=== PATIENT | female | born 1940 | race Caucasian/White ===

== ENCOUNTER → 2019-04-27 | Outpatient (CLI) | payer MEDICARE, BC ==
[~2019-04-27] MED LIST: APIX5TAB PO; CARV-39 PO; EZET1TAB26 PO; LOSA50TA14 PO
[2019-04-27 14:49] LABS: MICROSCOPIC NOT IND
[2019-04-27 14:51] LABS: CULTURE INDICATED? NO
[2019-04-27 15:00] LABS: ALANINE AMINOTRANSFERASE 26 U/L (12-78); ALBUMIN 3.8 g/dL (3.4-5.0); ANION GAP 5 mmol/L (5-15); CALCIUM 8.7 mg/dL (8.5-10.1); CHLORIDE 111 mmol/L (98-107); CREATININE 1.15 mg/dL (0.55-1.02)
[2019-04-27 15:03] LABS: ALKALINE PHOSPHATASE 103 U/L (45-117); BILIRUBIN,TOTAL 0.8 mg/dL (0.2-1.0); TOTAL PROTEIN 7.3 g/dL (6.4-8.2)
== END | disposition home or self-care (01) ==
LOC: STAR 13:13
PROVIDERS: ATTEND Obstetrics & Gynecology Gynecology
DX: Z01.818 Encounter for other preprocedural examination (principal); N81.10 Cystocele, unspecified; N81.6 Rectocele; F17.200 Nicotine dependence, unspecified, uncomplicated
CPT/HCPCS: 36415; 71046; 80053; 81003; 93005

== ENCOUNTER 2019-05-15 07:11 | Inpatient (IN) | payer MEDICARE, BC ==
[~2019-05-15] VITALS: Ht 162.6 cm; Wt 78.3 kg
[2019-05-15] MEDS ORDERED: LACTATED RINGERS 1,000 ML IV SCH (07:48)
[2019-05-15] MEDS ORDERED: GABAPENTIN 300 MG CAPSULE PO ONE (08:00)
[2019-05-15] MEDS ORDERED: ACETAMINOPHEN 500 MG TABLET PO ONE (08:00)
[2019-05-15] MEDS ORDERED: FENTANYL PF 250 MCG/5ML ONE (09:29)
[2019-05-15] MEDS ORDERED: hydrALAzine 20 MG/ML, 1ML IV PRN (09:30)
[2019-05-15] MEDS ORDERED: METOPROLOL 1 MG/ML, 5ML IV PRN (09:30)
[2019-05-15] MEDS ORDERED: LABETALOL 5MG/ML, 20ML IV PRN (09:30)
[2019-05-15] MEDS ORDERED: PROMETHAZINE 25 MG/ML, 1ML IV PRN (09:30)
[2019-05-15] MEDS ORDERED: OXYcodone 5 MG/5 ML ORAL.SOL UDC PO PRN (09:30)
[2019-05-15] MEDS ORDERED: MEPERIDINE/PF 25MG/ML,1ML IVPush PRN (09:30)
[2019-05-15] MEDS ORDERED: HALOPERIDOL 5 MG/ML IV PRN (09:30)
[2019-05-15] MEDS ORDERED: PHENYLEPHRINE 10 MG/ML ONE (09:35)
[2019-05-15] MEDS ORDERED: FUROSEMIDE 20 MG/2 ML ONE (09:35)
[2019-05-15] MEDS ORDERED: INDIGO CARMINE 0.8%, 5ML ONE (09:35)
[2019-05-15] MEDS ORDERED: EPHEDRINE 50 MG/ML, 1ML ONE (09:56)
[2019-05-15] MEDS ORDERED: NEOSTIGMINE 1 MG/ML, 10ML ONE (11:24)
[2019-05-15] MEDS ORDERED: DEXAMETHASONE 4 MG/ML, 1ML ONE (11:24)
[2019-05-15] MEDS ORDERED: SUCCINYLCHOLINE 20 MG/ML, 10ML ONE (11:24)
[2019-05-15] MEDS ORDERED: GLYCOPYRROLATE 0.2MG/1ML, 5ML ONE (11:24)
[2019-05-15] MEDS ORDERED: ONDANSETRON 2MG/ML, 2ML ONE (11:24)
[2019-05-15] MEDS ORDERED: ROCURONIUM 10MG/ML,5ML ONE (11:24)
[2019-05-15] MEDS ORDERED: CEFAZOLIN 1,000 MG ONE (11:24)
[2019-05-15] MEDS ORDERED: PROPOFOL 10 MG/ML, 20ML ONE (11:24)
[2019-05-15] MEDS ORDERED: FENTANYL PF 100 MCG/2ML ONE (12:04)
[2019-05-15] MEDS ORDERED: OXYcodone 5 MG/5 ML ORAL.SOL UDC ONE (12:05)
[2019-05-15] MEDS: FENTANYL PF 100 MCG/2ML IV PRN ×2 (12:06→12:23)
[2019-05-15] MEDS ORDERED: HYDROmorphone 1 MG/ML, 1ML INJ ONE (12:51)
[2019-05-15] MEDS: HYDROmorphone 2 MG/ML, 1ML IVPush PRN ×2 (12:52→13:02)
[2019-05-15 13:45] VITALS: BP 113/79
[2019-05-15] MEDS ORDERED: ONDANSETRON 2MG/ML, 2ML IVPush PRN (14:30)
[2019-05-15] MEDS: LACTATED RINGERS 1,000 ML IV SCH ×2 (15:30→23:30)
[2019-05-15] MEDS: HYDROcodone/APAP 5/325 TABLET PO PRN ×2 (17:08→22:39)
[2019-05-15 18:29] VITALS: BP 121/82
[2019-05-15 19:19] VITALS: BP 129/83
[2019-05-15] MEDS ORDERED: SIMVASTATIN 10 MG TABLET PO SCH (21:00)
[2019-05-15] MEDS ORDERED: EZETIMIBE 10 MG TABLET PO SCH (21:00)
[2019-05-16 01:39] VITALS: BP 107/68
[2019-05-16] MEDS: HYDROcodone/APAP 5/325 TABLET PO PRN ×3 (03:46→11:40)
[2019-05-16 07:19] VITALS: BP 112/78
[2019-05-16] MEDS: LACTATED RINGERS 1,000 ML IV SCH (07:30)
[2019-05-16 08:51] VITALS: BP 123/88
[2019-05-16] MEDS ORDERED: APIXABAN 5 MG TABLET PO SCH (09:00)
[2019-05-16] MEDS ORDERED: CARVEDILOL 12.5 MG TABLET PO SCH (09:00)
[2019-05-16] MEDS ORDERED: LOSARTAN 25MG TABLET PO SCH (09:00)
[2019-05-16] MEDS ORDERED: ZOLP-413 PO (11:23)
== END 2019-05-16 12:13 | disposition home or self-care (01) | DRG 747 ==
LOC: OUT 07:11 → ORIP 12:29 → 4NE 13:40 → DCLOUNGE 05-16 11:50
PROVIDERS: ADMIT Obstetrics & Gynecology Gynecology; ATTEND Obstetrics & Gynecology Gynecology
PROC: 0UQF0ZZ Repair Cul-de-sac, Open Approach (ICD-10-PCS; principal; 2019-05-16)
PROC: 0USG0ZZ Reposition Vagina, Open Approach (ICD-10-PCS; 2019-05-16)
PROC: 0JQC0ZZ Repair Pelvic Region Subcutaneous Tissue and Fascia, Open Approach (ICD-10-PCS; 2019-05-16)
PROC: 0TJB8ZZ Inspection of Bladder, Via Natural or Artificial Opening Endoscopic (ICD-10-PCS; 2019-05-16)
PROC: 0TSD0ZZ Reposition Urethra, Open Approach (ICD-10-PCS; 2019-05-16)
PROC: 0TQD8ZZ Repair Urethra, Via Natural or Artificial Opening Endoscopic (ICD-10-PCS; 2019-05-16)
DX: N81.5 Vaginal enterocele (principal); N39.3 Stress incontinence (female) (male); N73.6 Female pelvic peritoneal adhesions (postinfective); N92.0 Excessive and frequent menstruation with regular cycle; N81.12 Cystocele, lateral
CPT/HCPCS: G0378; J0690; J1100; J1170; J2405; J2704; J2710; J3010; C1760; C1771; J0330; J1940; J2370; J7120

== ENCOUNTER → 2020-02-16 | Outpatient (CLI) | payer MEDICARE, BC ==
[~2020-02-16] MED LIST changes: +ZOLP-413 PO
[2020-02-16 14:52] LABS: BASOPHILS % (AUTO) 1 % (0-1); EOSINOPHILS % (AUTO) 1 % (1-7); LYMPHOCYTES % (AUTO) 29 % (22-44); MEAN CORPUSCULAR HEMOGLOBIN 32.9 pg (27.0-34.8); MEAN CORPUSCULAR HGB CONC 32.9 g/dL (32.4-35.8); MEAN PLATELET VOLUME 8.6 fL (7.4-10.4); MONOCYTES % (AUTO) 10 % (2-9); NEUTROPHILS % (AUTO) 60 % (42-75); PLATELET COUNT 225 x10^3/uL (130-400); RED BLOOD COUNT 4.64 x10^6/uL (3.82-5.3); RED CELL DISTRIBUTION WIDTH 13.6 % (9.6-15.2)
[2020-02-16 14:54] LABS: MD NO
[2020-02-16 14:59] LABS: MICROSCOPIC NOT IND
[2020-02-16 15:04] LABS: ALANINE AMINOTRANSFERASE 20 U/L (12-78); ALBUMIN 3.8 g/dL (3.4-5.0); CALCIUM 9.4 mg/dL (8.5-10.1); CREATININE 1.09 mg/dL (0.55-1.02)
[2020-02-16 15:07] LABS: ALKALINE PHOSPHATASE 104 U/L (45-117); BILIRUBIN,TOTAL 0.8 mg/dL (0.2-1.0); TOTAL PROTEIN 7.4 g/dL (6.4-8.2)
[2020-02-16 15:13] LABS: ANION GAP 4 mmol/L (5-15); CHLORIDE 109 mmol/L (98-107)
== END | disposition home or self-care (01) ==
LOC: STAR 13:14
PROVIDERS: ATTEND Obstetrics & Gynecology Gynecology
DX: Z01.818 Encounter for other preprocedural examination (principal); N81.10 Cystocele, unspecified; I48.91 Unspecified atrial fibrillation; I21.19 ST elevation (STEMI) myocardial infarction involving other coronary artery of inferior wall
CPT/HCPCS: 36415; 71046; 80053; 81003; 85025; 93005

== ENCOUNTER → 2020-02-22 | Outpatient (CLI) | payer MEDICARE, BC | END | disposition home or self-care (01) | LOC: STAR 08:27 | PROVIDERS: ATTEND Anesthesiology | DX: Z01.812 Encounter for preprocedural laboratory examination (principal); Z20.828 Contact with and (suspected) exposure to other viral communicable diseases | CPT/HCPCS: 36415; 87635 ==

== ENCOUNTER → 2020-04-11 | Outpatient (CLI) | payer MEDICARE, BC ==
[~2020-04-11] MED LIST changes: +B-12
[2020-04-11 14:22] LABS: ALBUMIN 3.7 g/dL (3.4-5.0); ANION GAP 4 mmol/L (5-15); CALCIUM 8.5 mg/dL (8.5-10.1); CHLORIDE 107 mmol/L (98-107)
[2020-04-11 14:26] LABS: ALANINE AMINOTRANSFERASE 26 U/L (12-78); ALKALINE PHOSPHATASE 106 U/L (45-117); BILIRUBIN,TOTAL 0.9 mg/dL (0.2-1.0); CREATININE 1.38 mg/dL (0.55-1.02); TOTAL PROTEIN 7.3 g/dL (6.4-8.2)
[2020-04-11 15:10] LABS: BASOPHILS % (AUTO) 1 % (0-1); EOSINOPHILS % (AUTO) 1 % (1-7); LYMPHOCYTES % (AUTO) 33 % (22-44); MEAN CORPUSCULAR HEMOGLOBIN 32.6 pg (27.0-34.8); MEAN CORPUSCULAR HGB CONC 32.9 g/dL (32.4-35.8); MEAN PLATELET VOLUME 9.1 fL (7.4-10.4); MONOCYTES % (AUTO) 9 % (2-9); NEUTROPHILS % (AUTO) 56 % (42-75); PLATELET COUNT 181 x10^3/uL (130-400); RED BLOOD COUNT 4.58 x10^6/uL (3.82-5.3); RED CELL DISTRIBUTION WIDTH 15.5 % (9.6-15.2)
[2020-04-11 15:24] LABS: MD NO
== END | disposition home or self-care (01) ==
LOC: STAR 12:23
PROVIDERS: ATTEND Obstetrics & Gynecology Gynecology
DX: Z01.812 Encounter for preprocedural laboratory examination (principal); Z20.828 Contact with and (suspected) exposure to other viral communicable diseases; N81.10 Cystocele, unspecified; I48.91 Unspecified atrial fibrillation; I21.19 ST elevation (STEMI) myocardial infarction involving other coronary artery of inferior wall
CPT/HCPCS: 80053; 85025; 87635; 93005

== ENCOUNTER 2020-04-15 07:28 | Day surgery (SDC) | payer MEDICARE, BC ==
[~2020-04-15] VITALS: Ht 165.1 cm; Wt 82.9 kg
[2020-04-15 08:00] VITALS: BP 171/109
[2020-04-15] MEDS ORDERED: CHLORHEXIDINE 15 ML UDC MM ONE (08:00)
[2020-04-15] MEDS ORDERED: LACTATED RINGERS 1,000 ML IV SCH (08:00)
[2020-04-15] MEDS ORDERED: FENTANYL PF 250 MCG/5ML ONE (08:45)
[2020-04-15] MEDS ORDERED: INDIGO CARMINE 0.8%, 5ML ONE (09:02)
[2020-04-15] MEDS ORDERED: LIDOCAINE/PF 1%, 30ML ONE (09:02)
[2020-04-15] MEDS ORDERED: FUROSEMIDE 20 MG/2 ML ONE (09:02)
[2020-04-15] MEDS ORDERED: ESMOLOL 100 MG/10 ML ONE (09:27)
[2020-04-15] MEDS ORDERED: GLYCOPYRROLATE 0.2MG/1ML, 5ML ONE (09:27)
[2020-04-15] MEDS ORDERED: SUCCINYLCHOLINE 20 MG/ML, 10ML ONE (09:27)
[2020-04-15] MEDS ORDERED: ROCURONIUM 10MG/ML,5ML ONE (09:27)
[2020-04-15] MEDS ORDERED: CEFAZOLIN 1,000 MG ONE (09:27)
[2020-04-15] MEDS ORDERED: NEOSTIGMINE 1 MG/ML, 10ML ONE (09:27)
[2020-04-15] MEDS ORDERED: METHOCARBAMOL 1,000 MG in DEXTROSE 5% 100 ML IV PRN (09:30)
[2020-04-15] MEDS ORDERED: ACETAMINOPHEN 325 MG TABLET PO PRN (09:30)
[2020-04-15] MEDS ORDERED: hydrALAzine 20 MG/ML, 1ML IV PRN (09:30)
[2020-04-15] MEDS ORDERED: HALOPERIDOL 5 MG/ML IV PRN (09:30)
[2020-04-15] MEDS ORDERED: HYDROmorphone 1 MG/ML, 1ML INJ IVPush PRN (09:30)
[2020-04-15] MEDS ORDERED: LORazepam 2 MG/ML, 1ML IVPush PRN (09:30)
[2020-04-15] MEDS ORDERED: EPHEDRINE 50 MG/ML, 1ML IM PRN (09:30)
[2020-04-15] MEDS ORDERED: LABETALOL 5MG/ML, 20ML IV PRN (09:30)
[2020-04-15] MEDS ORDERED: MEPERIDINE/PF 25MG/0.5ML IVPush PRN (09:30)
[2020-04-15] MEDS ORDERED: ONDANSETRON 2MG/ML, 2ML IVPush PRN (09:30)
[2020-04-15] MEDS ORDERED: EPHEDRINE 50 MG/ML, 1ML IVPush PRN (09:30)
[2020-04-15] MEDS ORDERED: ONDANSETRON 2MG/ML, 2ML ONE (11:02)
[2020-04-15] MEDS ORDERED: FENTANYL PF 100 MCG/2ML ONE (11:23)
[2020-04-15] MEDS: FENTANYL PF 100 MCG/2ML IV PRN ×2 (11:25→11:34)
[2020-04-15] MEDS ORDERED: HYDR-3240 PO (12:09)
[2020-04-15] MEDS: OXYcodone 5 MG/5 ML ORAL.SOL UDC PO PRN ×2 (13:00→14:18)
[2020-04-15] MEDS ORDERED: LORazepam 2 MG/ML, 1ML ONE (16:30)
[2020-04-15] MEDS ORDERED: HYDROcodone/APAP 5/325 TABLET ONE (18:21)
[2020-04-15] MEDS ORDERED: HYDROcodone/APAP 5/325 TABLET PO PRN (18:30)
== END 2020-04-15 18:00 | disposition home or self-care (01) ==
LOC: OUT 07:28
PROVIDERS: ATTEND Obstetrics & Gynecology Gynecology
DX: N81.4 Uterovaginal prolapse, unspecified (principal); I10 Essential (primary) hypertension; I48.91 Unspecified atrial fibrillation; Z88.2 Allergy status to sulfonamides
CPT/HCPCS: 57260; 57282; J0330; J0690; J2060; J2405; J2710; J3010; J7120; J1940